=== PATIENT | female | born 1950 | race Caucasian/White ===

== ENCOUNTER 2017-01-21 19:10 | Emergency (ER) | payer BC ==
[2017-01-21] MEDS ORDERED: Erythromycin OPTH OINT* APPLIC OINT RIGHT EYE ONE (19:46)
[2017-01-21 19:48] VITALS: BP 140/62
[2017-01-21] MEDS ORDERED: Ibuprofen TAB* 600 MG PO ONE (19:51)
--- NOTE | 2017-01-21 20:02 | ED ---
Throat Pain/Nasal Congestion - HPI Summary HPI Summary: Patient presents with right eye pain after the eye was swiped by a branch as she took the trash out tonight. She felt an instant moment of pain that resolved , and does not have a foreign body sensation, vision changes or pain with eye movement. She does not wear contact lens. - History of Current Complaint Chief Complaint: EDEyeProblem Time Seen by Provider: 01/21/17 19:18 Hx Obtained From: Patient Onset/Duration: Sudden Onset Severity: Mild Associated Signs And Symptoms: Positive: Negative Cough: None - Allergies/Home Medications Allergies/Adverse Reactions: Allergies Allergy/AdvReac Type Severity Reaction Status Date / Time Penicillins [PCN] Allergy Severe Swelling Verified 10/24/16 11:24 Of Face,Lips,& Throat Codeine Allergy Intermediate N/V/D Verified 10/24/16 11:24 Pseudoephedrine Allergy Intermediate DELAYED Verified 10/24/16 11:24 [From Sudafed] REACTION TIME SIGNIFICANTLY Sulfa Antibiotics Allergy Unknown Verified 10/24/16 11:24 Reaction Details PMH/Surg Hx/FS Hx/Imm Hx Endocrine/Hematology History: Denies: Hx Diabetes, Hx Anemia Cardiovascular History: Denies: Hx Congestive Heart Failure, Hx Hypertension, Hx Pacemaker/ICD GI History: Denies: Hx Jaundice History: Reports: Hx Kidney Stones - HISTORY Denies: Hx Renal Disease Musculoskeletal History: Reports: Hx Orthopedic Injury Denies: Hx Osteoporosis Sensory History: Reports: Hx Contacts or Glasses Denies: Hx Hearing Aid Opthamlomology History: Reports: Hx Contacts or Glasses Psychiatric History: Denies: Hx Panic Disorder - Cancer History Cancer Type, Location and Year: BASAL CELL, NOSE & FOREHEAD Hx Chemotherapy: No Hx Radiation Therapy: No - Surgical History Surgery Procedure, Year, and Place: REPAIR LAC ARM CHILD. 2008 L RING & MIDDLE FINGER - TRIGGER FINGER FINGER [facility]. Rt TRIGGER FINGER SURG - MIDDLE & RING. 2010 NOSE BASAL CELL CA [facility]. LT KNEE MENISCUS REPAIR Hx Anesthesia Reactions: No - Immunization History Date of Tetanus Vaccine: Unk Date of Influenza Vaccine: None Infectious Disease History: No Infectious Disease History: Denies: Hx Shingles, Hx Tuberculosis, Traveled Outside the [place] in Last 30 Days - Family History Known Family History: Positive: None - Social History Occupation: Employed Part-time Lives: With Family Alcohol Use: Occasionally Substance Use Type: Reports: None Smoking Status (MU): Never Smoked Tobacco Review of Systems Positive: Erythema - mild scleral erythema. Negative: Photophobia, Blurred Vision, Diplopia, Drainage Negative: Headache All Other Systems Reviewed And Are Negative: Yes Physical Exam Triage Information Reviewed: Yes Vital Signs On Initial Exam: Initial Vitals Temp Pulse Resp BP Pulse Ox 97.5 F 92 18 140/69 98 01/21/17 19:13 01/21/17 19:13 01/21/17 19:13 01/21/17 19:13 01/21/17 19:13 Vital Signs Reviewed: Yes Appearance: Positive: Well-Appearing, No Pain Distress, Well-Nourished Skin: Positive: Warm, Skin Color Reflects Adequate Perfusion, Dry, Soft Head/Face: Positive: Normal Head/Face Inspection Eyes: Positive: EOMI, JELLY, Conjunctiva Inflammed - mild right sclera ENT: Positive: Hearing grossly normal Respiratory/Lung Sounds: Positive: Breath Sounds Present Cardiovascular: Positive: RRR Neurological: Positive: Sensory/Motor Intact, Alert, Oriented to Person Place, Time, Normal Gait Psychiatric: Positive: Affect/Mood Appropriate AVPU Assessment: Alert Procedures - Eye Procedure Alcaine Drops Administered: Yes - no foreign body Eye Irrigated w/ Saline (ccs): 10 Antibiotic Ointment/Drps Admin: right eye Diagnostics - Vital Signs Vital Signs Temp Pulse Resp BP Pulse Ox 01/21/17 19:42 97.5 F 92 18 140/62 98 01/21/17 19:13 97.5 F 92 18 140/69 98 - Laboratory Lab Statement: Any lab studies that have been ordered have been reviewed, and results considered in the medical decision making process. EENT Course/Dx - Differential Diagnoses Differential Diagnoses: Abrasion, Conjunctivitis, Contusion, Corneal Abrasion, Penetrating Injury, Periorbital/Orbital Cellulitis - Diagnoses Provider Diagnoses: Abrasion of sclera of right eye Discharge - Discharge Plan Condition: Stable Disposition: HOME Referrals: Tonio Wright MD [Primary Care Provider] - Darell Amos MD [Medical Doctor] - Additional Instructions: Please use the medication provided as directed until directed otherwise. Call Dr. Amos's office for an appointment in 1-3 days for re-evaluation and guidance. Use ibuprofen 400-600mg three times daily with meals for the next 3-5 days to decrease pain and swelling. Return to the emergency department if symptoms worsen.
== END 2017-01-21 20:13 | disposition home or self-care (01) ==
LOC: ED 19:10
DX: S00.211A Abrasion of right eyelid and periocular area, initial encounter (principal); W22.8XXA Striking against or struck by other objects, initial encounter; Y93.9 Activity, unspecified; Y92.89 Other specified places as the place of occurrence of the external cause
CPT/HCPCS: 99282; A9270-GY

== ENCOUNTER 2018-11-26 18:08 | Emergency (ER) | payer MEDICARE, BC ==
[2018-11-26] MEDS ORDERED: Tetracaine 0.5% OPTH.SOL 4 ML* 1 DROP BTL SCH (20:00)
[2018-11-26] MEDS ORDERED: Fluorescein Sodium TOPICAL* 1 MG TEST STRIP OPHTHALMIC ONE (20:00)
--- NOTE | 2018-11-26 20:41 | ED ---
Throat Pain/Nasal Congestion - HPI Summary HPI Summary: Patient complains of right eye pain after getting hit in the eye with some branches this afternoon. Denies vision change. - History of Current Complaint Chief Complaint: EDEyeProblem Time Seen by Provider: 11/26/18 19:54 Hx Obtained From: Patient Onset/Duration: Lasting Hours Severity: Mild Associated Signs And Symptoms: Positive: Negative Cough: None - Allergies/Home Medications Allergies/Adverse Reactions: Allergies Allergy/AdvReac Type Severity Reaction Status Date / Time MS Penicillins [PCN] Allergy Severe Swelling Verified 09/16/18 12:22 Of Face,Lips,& Throat MS Codeine [Codeine] Allergy Intermediate N/V/D Verified 09/16/18 12:22 MS Pseudoephedrine Allergy Intermediate DELAYED Verified 09/16/18 12:22 [From Sudafed] REACTION TIME SIGNIFICANTLY PMH/Surg Hx/FS Hx/Imm Hx Endocrine/Hematology History: Denies: Hx Diabetes, Hx Anemia Cardiovascular History: Denies: Hx Congestive Heart Failure, Hx Hypertension, Hx Pacemaker/ICD GI History: Denies: Hx Jaundice History: Reports: Hx Kidney Stones - HISTORY Denies: Hx Renal Disease Musculoskeletal History: Reports: Hx Orthopedic Injury Denies: Hx Osteoporosis Sensory History: Reports: Hx Contacts or Glasses Denies: Hx Hearing Aid Opthamlomology History: Reports: Hx Contacts or Glasses EENT History: Denies: Hx Deafness Neurological History: Denies: Hx Dementia Psychiatric History: Denies: Hx Panic Disorder - Cancer History Cancer Type, Location and Year: BASAL CELL, NOSE & FOREHEAD Hx Chemotherapy: No Hx Radiation Therapy: No - Surgical History Surgery Procedure, Year, and Place: REPAIR RIGHT ARM CHILD. 2008 L RING & MIDDLE FINGER - TRIGGER FINGER FINGER [facility]. Rt TRIGGER FINGER SURG - MIDDLE & RING. 2010 NOSE BASAL CELL [facility]. LT KNEE MENISCUS REPAIR Hx Anesthesia Reactions: No - Immunization History Date of Tetanus Vaccine: Unk Date of Influenza Vaccine: None Infectious Disease History: No Infectious Disease History: Denies: Hx Shingles, Hx Tuberculosis, Traveled Outside the [place] in Last 30 Days - Family History Known Family History: Positive: None - Social History Alcohol Use: Occasionally Substance Use Type: Reports: None Smoking Status (MU): Never Smoked Tobacco Review of Systems Constitutional: Negative Eyes: Other Positive: Other - conjunctival injection. Right eye ENT: Negative Cardiovascular: Negative Respiratory: Negative Gastrointestinal: Negative Genitourinary: Negative Musculoskeletal: Negative Skin: Negative Neurological: Negative Psychological: Normal All Other Systems Reviewed And Are Negative: Yes Physical Exam - Summary Physical Exam Summary: Conjunctival injection right eye. EOMI. Visual atkinosn intact. Triage Information Reviewed: Yes Vital Signs On Initial Exam: Initial Vitals Temp Pulse Resp BP Pulse Ox 97.3 F 99 18 160/97 95 11/26/18 18:15 11/26/18 18:15 11/26/18 18:15 11/26/18 18:15 11/26/18 18:15 Vital Signs Reviewed: Yes Appearance: Positive: Well-Appearing Skin: Positive: Warm Head/Face: Positive: Normal Head/Face Inspection Eyes: Positive: Other: Neck: Positive: Supple Respiratory/Lung Sounds: Positive: Clear to Auscultation Cardiovascular: Positive: Normal Abdomen Description: Positive: Nontender Musculoskeletal: Positive: Normal Neurological: Positive: Normal Psychiatric: Positive: Normal AVPU Assessment: Alert - Vu Coma Scale Best Eye Response: 4 - Spontaneous Best Motor Response: 6 - Obeys Commands Best Verbal Response: 5 - Oriented Coma Scale Total: 15 Diagnostics - Vital Signs Vital Signs Temp Pulse Resp BP Pulse Ox 11/26/18 18:15 97.3 F 99 18 160/97 95 - Laboratory Lab Statement: Any lab studies that have been ordered have been reviewed, and results considered in the medical decision making process. EENT Course/Dx - Course Course Of Treatment: Patient complains of right eye pain after getting hit in the eye with some branches this afternoon. Denies vision change. Physical exam :Conjunctival injection right eye. EOMI. Visual atkinson intact. Vital signs within normal limits. Positive corneal abrasion right eye on exam. Gentamicin antibiotic eyedrops every 4 hours. Follow-up with agricultural extension officer. Patient understands and approves of plan. - Diagnoses Provider Diagnoses: Corneal abrasion Discharge - Sign-Out/Discharge Documenting (check all that apply): Patient Departure Patient Received Moderate/Deep Sedation with Procedure: No - Discharge Plan Condition: Stable Disposition: HOME Patient Education Materials: Corneal Abrasion (ED) Referrals: Jyoce Forte MD [Primary Care Provider] - Darell Amos MD [Medical Doctor] - Additional Instructions: Follow-up with your agricultural extension officer tomorrow morning for further evaluation. 2 drops of antibiotic solution in right eye every 4 hours. Return to the ED for any new or worsening symptoms. - Billing Disposition and Condition Condition: STABLE Disposition: Home
[2018-11-26] MEDS ORDERED: Gentamicin 0.3% OPHTH.SOLN* 5 ML BTL RIGHT EYE SCH (21:00)
[2018-11-26 21:07] VITALS: BP 134/79
== END 2018-11-26 21:04 | disposition home or self-care (01) ==
LOC: ED 18:08
DX: S05.01XA Injury of conjunctiva and corneal abrasion without foreign body, right eye, initial encounter (principal); H57.11 Ocular pain, right eye; Z88.0 Allergy status to penicillin; W22.8XXA Striking against or struck by other objects, initial encounter; Y92.9 Unspecified place or not applicable
CPT/HCPCS: 99282; A9270-GY

== ENCOUNTER 2024-07-18 06:17 | Observation (INO) ==
[~2024-07-18 06:17] MED LIST: NS 0.45% 1000 ml BAG 1,000 ML IV SCH; Naloxone 0.4 mg VIAL 0.4 mg/ml 1 ml VIAL IV PRN; Ondansetron 4 mg VIAL 2 MG/ML 2 ml VIAL IV PRN; Tranexamic Acid 1 GM/100ML BAG 2,000 MG/200 ML BAG IV ONE; ceFAZolin 2 GM PREMIX 2 GM/50 ML BAG ONE
[2024-07-18 06:26] LABS: Rapid COVID-19 Molecular Undetected (Undetected)
[2024-07-18] MEDS ORDERED: Rocuronium 50 mg VIAL 10 mg/ml 5 ml VIAL (50 mg) ONE ×2 (06:27→08:55)
[2024-07-18] MEDS ORDERED: Dexamethasone IV 4 MG/ML VIAL 1 ml VIAL ONE (06:27)
[2024-07-18] MEDS ORDERED: Midazolam 2 mg/2 ml VIAL 1 mg/ml 2 ml VIAL (2 mg) ONE (06:27)
[2024-07-18] MEDS ORDERED: fentaNYL 250 mcg/5 ml 50 MCG/ML 5 ml VIAL (250 MCG) ONE (06:27)
[2024-07-18] MEDS ORDERED: Lidocaine 2% PF 5 ML VIAL ONE (06:27)
[2024-07-18] MEDS ORDERED: Propofol 10 MG/ML 20 ML BTL ONE (06:27)
[2024-07-18] MEDS ORDERED: Ondansetron 4 mg VIAL 2 MG/ML 2 ml VIAL ONE (06:27)
[2024-07-18] MEDS ORDERED: fentaNYL 100 mcg/2 ml 50 MCG/ML VIAL ONE ×3 (06:42→12:57)
[2024-07-18] MEDS ORDERED: Midazolam 5 mg/5 ml VIAL 1 mg/ml 5 ml VIAL (5 mg) ONE (06:42)
[2024-07-18] MEDS ORDERED: ROPIVACAINE 5 MG/ML 30 ML BTL (0.5%) ONE (06:42)
[2024-07-18] MEDS ORDERED: Vancomycin 1,000 MG VIAL ONE (07:30)
[2024-07-18] MEDS ORDERED: Phenylephrine 40 mcg/mL 10mL (400mcg) SYRINGE ONE (08:06)
[2024-07-18] MEDS ORDERED: Phenylephrine IV 10 MG/ML 1 ml VIAL ONE (08:15)
[2024-07-18] MEDS ORDERED: Magnesium Hydroxide LIQ 30 ML UDC PO PRN (11:49)
[2024-07-18] MEDS ORDERED: Lactulose 30 ml UDC PO PRN (11:49)
[2024-07-18] MEDS ORDERED: Ondansetron 4 mg VIAL 2 MG/ML 2 ml VIAL IV PRN (11:49)
[2024-07-18] MEDS ORDERED: Morphine 2 MG/ML SYRINGE IV PRN (11:49)
[2024-07-18] MEDS ORDERED: Calcium Carb (TUMS) 500 mg CHEW TAB PO PRN (11:49)
[2024-07-18] MEDS ORDERED: Ondansetron ODT 4 mg TAB 4 MG TAB PO PRN (11:49)
[2024-07-18] MEDS: fentaNYL 100 mcg/2 ml 50 MCG/ML VIAL IV PRN (12:13)
[2024-07-18] MEDS ORDERED: Acetaminophen IV 1 GM/100ML 1,000 MG/100 ML BAG IV ONE (12:57)
[2024-07-18] MEDS: Acetaminophen IV 1 GM/100ML 1,000 MG/100 ML BAG IV ONE (13:01)
[2024-07-18] MEDS: Buffered Lidocaine 1% SYRIN 1 ml INTRADERM ONE (14:40)
[2024-07-18] MEDS: Lactated Ringers 1000 ml BAG 1,000 ML IV SCH ×2 (14:40→14:52)
[2024-07-18] MEDS: ceFAZolin 2 GM PREMIX 2 GM/50 ML BAG IV SCH ×2 (14:52→17:56)
[2024-07-18] MEDS ORDERED: Fluticasone NASAL SPRAY 50MCG 16 gm SPRAY BTL INTRANASAL PRN (18:50)
[2024-07-18] MEDS: [UNRECOGNIZED DRUG - OTHER] PO SCH (23:21)
[2024-07-18] MEDS: Magnesium Hydroxide LIQ 30 ML UDC PO SCH (23:21)
[2024-07-18] MEDS: FERROUS SULFATE PO SCH (23:21)
[2024-07-19 06:47] LABS: Hematocrit 35.7 % (35-45); Hemoglobin 12.2 g/dL (11.5-14.3); Mean Platelet Volume 8.2 fL (7.5-11.2); Platelet Count 216 10^3/uL (150-450)
[2024-07-19 07:04] LABS: Calcium 8.9 mg/dL (8.6-10.3); Creatinine, Serum 0.88 mg/dL (0.51-0.95); Potassium 4.6 mmol/L (3.5-5.0); eGFR CKD-EPI 68.1 (>60)
[2024-07-19] MEDS: Vitamin THERAPEUTIC TAB PO SCH (08:35)
[2024-07-19] MEDS: Cholecalciferol (VIT D3) 1,000 unit TAB PO SCH (08:39)
[2024-07-19 09:54] VITALS: BP 101/66
== END 2024-07-19 12:12 | disposition home or self-care (01) ==
LOC: SSU 06:17 → OR 06:17
PROVIDERS: ADMIT Orthopaedic Surgery; ATTEND Orthopaedic Surgery